=== PATIENT | female | born 1965 | race Caucasian/White ===

== ENCOUNTER 2021-06-17 09:20 | Emergency (ER) | payer BC ==
[~2021-06-17] VITALS: Ht 167.6 cm; Wt 84.5 kg
[2021-06-17 09:50] VITALS: TEMP 97.5
[2021-06-17] MEDS ORDERED: WALKER MC (12:05)
[2021-06-17 12:26] VITALS: BP 134/71; PULSE 82
== END 2021-06-17 12:32 | disposition home or self-care (01) ==
LOC: COL.ER 09:20
DX: S70.02XA Contusion of left hip, initial encounter (principal); I10 Essential (primary) hypertension; W10.1XXA Fall (on)(from) sidewalk curb, initial encounter
CPT/HCPCS: J1885

== ENCOUNTER → 2022-01-12 | Outpatient (CLI) | payer BC ==
[~2022-01-12] MED LIST: NORCO 325 MG-51 TAB PO; WALKER MC
== END ==
LOC: MC.RAD 12-24 09:00
DX: Z12.31 Encounter for screening mammogram for malignant neoplasm of breast (principal)

== ENCOUNTER 2022-01-16 20:35 | Emergency (ER) | payer BC ==
[~2022-01-16] VITALS: Ht 167.6 cm; Wt 84.1 kg
[~2022-01-16 20:35] MED LIST changes: -NORCO 325 MG-51 TAB PO
[2022-01-16 20:45] VITALS: TEMP 98
[2022-01-16] MEDS ORDERED: NORCO 325 MG-51 TAB PO (21:59)
[2022-01-16 22:27] VITALS: BP 134/80; PULSE 76
== END 2022-01-16 22:27 | disposition home or self-care (01) ==
LOC: COL.ER 20:35
DX: S42.001A Fracture of unspecified part of right clavicle, initial encounter for closed fracture (principal); S80.211A Abrasion, right knee, initial encounter; Z28.310 Unvaccinated for COVID-19; V19.9XXA Pedal cyclist (driver) (passenger) injured in unspecified traffic accident, initial encounter

== ENCOUNTER 2023-10-03 09:27 | Emergency (ER) | payer BC ==
[~2023-10-03] VITALS: Ht 170.2 cm; Wt 95.5 kg
[~2023-10-03 09:27] MED LIST changes: +NORCO 325 MG-51 TAB PO
[2023-10-03 09:56] VITALS: BP 150/90; TEMP 97.9
[2023-10-03] MEDS ORDERED: PERCOCET 325 MG1 TA2 PO ×2 (11:27→11:30)
[2023-10-03] MEDS ORDERED: oxyCODONE/Acetaminophen 5-325 MG TAB PO ONE (11:30)
[2023-10-03] MEDS ORDERED: Ibuprofen 400 MG TAB PO ONE (11:30)
[2023-10-03 12:29] VITALS: PULSE 56
== END 2023-10-03 12:29 | disposition home or self-care (01) ==
LOC: COL.ER 09:27
DX: S52.502A Unspecified fracture of the lower end of left radius, initial encounter for closed fracture (principal); S00.81XA Abrasion of other part of head, initial encounter; S00.31XA Abrasion of nose, initial encounter; W01.0XXA Fall on same level from slipping, tripping and stumbling without subsequent striking against object, initial encounter; Y93.01 Activity, walking, marching and hiking; Y92.480 Sidewalk as the place of occurrence of the external cause

== ENCOUNTER → 2024-03-26 | Outpatient (CLI) | payer BC ==
[~2024-03-26] MED LIST changes: +PERCOCET 325 MG1 TA2 PO
== END ==
LOC: MC.RAD 07:44
DX: Z12.31 Encounter for screening mammogram for malignant neoplasm of breast (principal)